=== PATIENT | female | born 1940 | race Caucasian/White ===

== ENCOUNTER → 2016-07-29 | Outpatient (CLI) | payer OTHER ==
[~2016-07-29] VITALS: Ht 165.1 cm; Wt 82.4 kg
[~2016-07-29] MED LIST: ASPIR 8181 MG PO; ATORVASTATIN CA40 MG PO; CENTRUM SILVER1 EAC4; METOPROLOL SUCC50 MG PO; NEURONTIN300 MG PO; PERCOCET 7.5-31 EACH PO; VERAPAMIL ER240 MG PO; ZETIA10 MG PO; ZOLOFT50 MG PO
--- NOTE | ~2016-07-29 | HPC ---
[facility] [address] [place] [address] PAIN MANAGEMENT CONSULTATION Name: MILAGROS FINLEY [id number] Admission: 07/29/16 Attend Phys: Moshe Latham DO Discharge: Date of : 41 Report #: [id number] THIS REPORT FOR: //name// CC: Moshe Rosas DATE OF SERVICE: 07/29/2016 DATE OF SERVICE: 07/29/2015 CHIEF COMPLAINT: Low back pain, bilateral lower extremity pain and paresthesias secondary to spinal stenosis. HISTORY OF PRESENT ILLNESS: As you know, the patient is very pleasant 75-year-old female returning in followup visit reporting pain score of around 7/10. States her pain is chronic in nature, sharp, numbness, tingling in sensation, exacerbated with sitting, walking, standing and improves with medications, repositioning, lying down, heat, cold compresses and epidural injections. She returns today in followup visit with a 90% improvement in overall pain with the epidural injection provided 2 months ago, requesting the next in a series of epidural injections in hopes of building on success of previous intervention to address her 7/10 pain today. ALLERGIES: SULFA. CURRENT MEDICATIONS: Oxycodone, aspirin, metoprolol, multivitamin, sertraline, verapamil, atorvastatin, Zetia. SOCIAL HISTORY: The patient denies tobacco, alcohol or IV or illicit drug use. She is retired. Has been retired for years, unaccompanied today. PHYSICAL EXAMINATION: VITAL SIGNS: Blood pressure 184/61, pulse 65, respiratory rate 20, unlabored. The patient is 100% on room air. Height 5 feet 5 inches tall, weight 181.6 pounds, BMI calculated 30.2. GENERAL: Well-developed, well-nourished, well-hydrated 75-year-old female appearing stated age. She is placing current pain score 7/10. HEENT: Normocephalic, atraumatic. Pupils equal, round, reactive to light. Extraocular muscles are intact. There is noted bilateral blepharitis. Speech is fluent. EXTREMITIES: Show no clubbing, no cyanosis, no edema. MUSCULOSKELETAL: Lower extremity strength appears again equal and symmetrical 5/5. Seated straight leg raising negative. Supine straight leg raising positive, left greater than right. Gait is tandem. Muscle bulk and tone equal and symmetrical in lower extremities. [facility] [address] [place] [address] PAIN MANAGEMENT CONSULTATION Name: TUSHARMILAGROS CHANDRA [facility] [id number] Admission: 07/29/16 Attend Phys: Moshe Latham DO Discharge: Date of : 41 Report #: [id number] ASSESSMENT: 1. Symptomatic lumbar radiculopathy. 2. Spinal stenosis of the lumbar spine. 3. Displacement of lumbar intervertebral disk with radiculopathy. 4. Lumbosacral spondylosis with radiculopathy. 5. Degeneration of lumbar spine. 6. Chronic intractable pain. PLAN: 1. The patient returns today in followup visit requesting next in the series of epidural injections under fluoroscopic guidance. The patient has done very well with previous epidural injection. She is hopeful to see similar improvement with today's procedure, as you are aware, the patient received 90% improvement in overall pain lasting for nearly 2 months with the previous injection. She has been consented to undergo the procedure. Advised of risks and benefits, states she understood and wished to proceed. 2. The patient was provided a refill prescription on Percocet 7.5/325 one tab every 6 hours p.r.n. for pain, #120, releases of today, 4 weeks from today, 8 weeks from today. This medication is working well. She is denying any side effects with its use and wishes to continue the therapy. 3. The patient to return to our clinic on an as needed basis for next in the series of epidural injections. Otherwise, we will see her back in followup visit in 3 months for medication management. PROCEDURE NOTE DESCRIPTION OF PROCEDURE: Lumbar epidural steroid injection under fluoroscopic guidance. After obtaining written consent, the patient was taken back to fluoroscopy suite, placed in prone position with pillow under abdomen to decrease lumbar lordosis. Skin overlying the lumbosacral area was then prepped and draped in aseptic fashion. Lumbar intervertebral spaces were identified by AP fluoroscopy. Skin and subcutaneous tissue overlying the target site of injection was anesthetized with 3 mL of 1% lidocaine. A 20-gauge 3-1/2 inch Tuohy needle was advanced under fluoroscopic guidance towards the epidural space using a paramedian approach. Epidural space was identified using loss of resistance to air technique. After negative aspiration for heme or cerebrospinal fluid, 1 mL of Omnipaque was injected. Lumbar epidurogram was confirmed using both AP and lateral fluoroscopy. After negative aspiration for heme or cerebrospinal fluid, 5 mL of a solution containing 2 mL 40 mg per mL, 80 mg total triamcinolone and 3 mL lidocaine 1% was injected slowly. Needle retracted approximately half way and needle tract flushed 3 mL 1% lidocaine. Needle then removed. Sterile bandage placed over the injection [address] [address] PAIN MANAGEMENT CONSULTATION Name: MILAGROS FINLEY Room #: REG CLI Nancy#: [id number] Admission: 07/29/16 Attend Phys: Moshe Latham DO Discharge: Date of : 41 Report #: [id number] site. No new motor deficits present in the lower extremity following the procedure. The patient tolerated procedure well, carefully escorted to recovery room in stable condition. No apparent complications. After meeting discharge criteria, the patient discharged home. <ELECTRONICALLY SIGNED> By: Moshe Latham DO 07/29/16 1316 [id number] Moshe Latham DO /nt
[2016-07-29 09:44] VITALS: BP 184/61
== END | disposition home or self-care (01) ==
LOC: PAIN 05:43
DX: M51.16 Intervertebral disc disorders with radiculopathy, lumbar region (principal); M48.06 Spinal stenosis, lumbar region; M47.27 Other spondylosis with radiculopathy, lumbosacral region; G89.29 Other chronic pain

== ENCOUNTER → 2016-11-11 | Outpatient (CLI) | payer OTHER ==
[~2016-11-11] VITALS: Ht 165.1 cm; Wt 81.6 kg
--- NOTE | ~2016-11-11 | HPC ---
[facility] [address] [place] [address] PAIN MANAGEMENT CONSULTATION Name: MILAGROS FINLEY Room #: REG [facility].#: [id number] Admission: 11/11/16 Attend Phys: Moshe Latham DO Discharge: Date of : 41 Report #: [id number] THIS REPORT FOR: //name// CC: Moshe Rosas MD DATE OF SERVICE: 11/11/2016 DATE OF SERVICE: 11/11/2016 CHIEF COMPLAINT: Low back pain, bilateral lower extremity pain and paresthesias. HISTORY OF PRESENT ILLNESS: As you know, patient is a very pleasant 76-year-old female, who returns today in followup visit with continued low back pain, bilateral lower extremity pain for which she places pain score at 8/10. She indicates pain is sharp and tingling in sensation, exacerbated with sitting, walking, standing and bending, improves with repositioning, lying down, heat, cold compresses, medications and previous epidural injections. The most recent epidural injection reportedly provided 50-60% improvement in overall pain lasting for nearly 2 months. She returns today in followup visit requesting refills on her Percocet therapy for which she takes 4 tabs of Percocet 7.5/325 today and to undergo the next in a series of epidural injections in hopes of improving pain. She denies new injury, new trauma that may have led the symptoms and their continuation of discomfort. ALLERGIES: No known drug allergies. CURRENT MEDICATIONS: Percocet, metoprolol, multivitamin, verapamil, sertraline, atorvastatin and Zetia. SOCIAL HISTORY: The patient denies tobacco, alcohol, IV or illicit drug use. She is retired and retired years ago, unaccompanied today. IMAGING: No new imaging available. PHYSICAL EXAMINATION: VITAL SIGNS: Blood pressure 140/59, pulse 66, respiratory rate 20, unlabored. The patient is 97% on room air, height 5 feet 5 inches tall, weight 180 pounds, BMI calculated 30. GENERAL: Well-developed, well-nourished, well-hydrated, 76-year-old female appearing stated age, placing current pain score 8/10. HEENT: Normocephalic, atraumatic. Pupils equal, round, reactive to light. Extraocular muscles are intact. EXTREMITIES: Show no clubbing, no cyanosis, no edema. [address] [address] PAIN MANAGEMENT CONSULTATION Name: MILAGROS FINLEY Room #: REG CL Nancy#: [id number] Admission: 11/11/16 Attend Phys: Moshe Latham DO Discharge: Date of : 41 Report #: [id number] MUSCULOSKELETAL: Lower extremity strength remains equal and symmetrical 5/5. Seated straight leg raising negative. Supine straight leg raising positive. Fabere's test negative. Gait mildly antalgic, stance forward flexed of the lumbar spine with loss of lordotic curvature. ASSESSMENT: 1. Symptomatic lumbar radiculopathy. 2. Progressively worsening spinal stenosis of the lumbar spine. 3. Displacement of lumbar intervertebral disk with radiculopathy. 4. Lumbosacral spondylosis with radiculopathy. 5. Degeneration of lumbar spine. 6. Chronic intractable pain. PLAN: 1. The patient has returned today in followup visit requesting to undergo epidural injection under fluoroscopic guidance. She has done very well with previous epidural injections in the past. Fact the most recent provided 50-60% improvement in overall pain lasting for nearly 2 months. The patient and I discussed the risks and benefits of repeating epidural injection, states she understood and wished to proceed. 2. The patient was provided a refill prescription on Percocet 7.5/325 one tab p.o. q. 6 hours p.r.n. for pain, given the patient #120. The patient was advised to take the medication as directed, not to rely on the medication prophylactically. She has been very appropriate with her medications. We will continue to monitor her safety with use of this therapy. 3. We will see the patient back in followup visit on an as needed basis for possible repeat epidural injection. Otherwise, we will see her back in 3 months for medication management. PROCEDURE NOTE DESCRIPTION OF PROCEDURE: Lumbar epidural steroid injection under fluoroscopic guidance. After obtaining written consent, the patient was taken back to fluoroscopy suite, placed in prone position with pillow under abdomen to decrease lumbar lordosis. Skin overlying lumbosacral area prepped and draped in aseptic fashion. Lumbar intervertebral spaces were identified by AP fluoroscopy. Skin and subcutaneous tissue overlying target site of injection was anesthetized with 3 mL of 1% lidocaine. A 20-gauge 3-1/2 inch Tuohy needle advanced under fluoroscopic guidance towards the epidural space using a paramedian approach. Epidural space identified using loss of resistance to air technique. After negative aspiration for heme or cerebrospinal fluid, 1 mL of Omnipaque was injected. A lumbar epidurogram was confirmed using both AP and lateral fluoroscopy. After negative aspiration for [address] [address] PAIN MANAGEMENT CONSULTATION Name: MILAGROS FINLEY Room #: REG JOE Cruz#: [id number] Admission: 11/11/16 Attend Phys: Moshe Latham DO Discharge: Date of : 41 Report #: [id number] heme or cerebrospinal fluid, 5 mL of a solution containing 2 mL 40 mg per mL, 80 mg total triamcinolone, 3 mL lidocaine 1% injected slowly. Needle retracted long term, needle tract flushed 3 mL 1% lidocaine. Needle then removed. Sterile bandage placed over injection site. No new motor deficits present in the lower extremities following the procedure. The patient tolerated procedure well, carefully escorted to the recovery in stable condition. No apparent complications. After meeting discharge criteria, the patient discharged home. By: [id number] [id number] Moshe Latham DO /nt
[2016-11-11 09:10] VITALS: BP 140/59
== END ==
LOC: PAIN 06:52
DX: M47.27 Other spondylosis with radiculopathy, lumbosacral region (principal); M48.06 Spinal stenosis, lumbar region; M51.16 Intervertebral disc disorders with radiculopathy, lumbar region; I10 Essential (primary) hypertension

== ENCOUNTER → 2017-03-10 | Outpatient (CLI) | payer OTHER ==
[~2017-03-10] VITALS: Ht 165.1 cm; Wt 78.1 kg
--- NOTE | ~2017-03-10 | HPC ---
[facility] [address] [place] [address] PAIN MANAGEMENT CONSULTATION Name: MILAGROS FINLEY Room #: REG [facility].#: [id number] Admission: 03/10/17 Attend Phys: Moshe Latham DO Discharge: Date of : 41 Report #: [id number] THIS REPORT FOR: //name// CC: Moshe Rosas MD DATE OF SERVICE: 03/10/2017 REFERRING PHYSICIAN: Brenda Rosas MD. CHIEF COMPLAINT: Low back pain, bilateral lower extremity pain and paresthesias. HISTORY OF PRESENT ILLNESS: As you know, the patient is a very pleasant 76-year-old female who returns today in followup visit with recurrent low back pain, lower extremity pain with paresthesias. The patient is now placing pain score at 7-8/10. The patient reports 75% improvement in overall pain with previous epidural injections. Unfortunately, she has had a slow and progressive return of symptoms. She describes pain as burning, aching and intermittent in descriptions. She describes the pain is exacerbated with standing and walking and improves with medications and lying down. She returns today in followup visit for next in the series of epidural injections under fluoroscopic guidance and also to receive refills of her medications. She is denying side effects to the medications, such as sleepiness, disorientation and confusion. She denies injury or trauma or changes in her medical history since our last visit. ALLERGIES: No known drug allergies. CURRENT MEDICATIONS: Percocet, metoprolol, multivitamin, verapamil, sertraline, atorvastatin and Zetia. SOCIAL HISTORY: The patient denies tobacco, alcohol, IV or illicit drug use. She is retired. retired years ago. She is unaccompanied at today's visit. IMAGING: No new imaging available. PHYSICAL EXAMINATION: VITAL SIGNS: Blood pressure 139/66, pulse 63 and respiratory rate 18, unlabored. The patient is 97% on room air. Height 5 feet 5 inches tall, weight 172.2 pounds and BMI calculated at 28.7. GENERAL: Well-developed, well-nourished and well-hydrated 76-year-old female appearing her stated age, placing current pain score 7-8/10. HEENT: Normocephalic, atraumatic. Pupils equal, round and reactive to light. Extraocular muscles are intact. Sclerae nonicteric, without injection. EXTREMITIES: Show no clubbing, no cyanosis and no edema. [facility] [address] [place] [address] PAIN MANAGEMENT CONSULTATION Name: MILAGROS FINLEY Room #: REG [facility]#: [id number] Admission: 03/10/17 Attend Phys: Moshe Latham DO Discharge: Date of : 41 Report #: [id number] MUSCULOSKELETAL: Lower extremity strength appears equal and symmetrical 5/5. Seated straight leg raising negative. Supine straight leg raising remains positive. Helio test negative. Modified Gaenslen's positive for axial low back pain. Ankle clonus negative. Babinski is negative. ASSESSMENT: 1. Symptomatic lumbar radiculopathy. 2. Spinal stenosis, lumbar spine. 3. Displacement of lumbar intervertebral disk with radiculopathy. 4. Lumbosacral spondylosis with radiculopathy. 5. Lumbar degeneration. 6. Chronic intractable pain. PLAN: 1. The patient returns today in followup visit to undergo next in the series of epidural injections. She reports a 75% improvement in overall pain with previous injection lasting until just recently, where she had a slow and progressive return of symptoms without inciting injury or trauma. She has requested this repeat epidural injection in hopes of building on success of previous intervention, reducing her pain to a tolerable level. She has been advised risks and benefits of procedure, states she understood and wished to proceed. 2. The patient was provided a refill prescription on her oxycodone 7.5/325 one tab every 6 hours p.r.n. for pain. I have given the patient #120, releases of today, 4 weeks from today and 8 weeks from today. The patient denies side effects of somnolence, decreased mental acuity, disorientation, confusion or constipation with the use of this medication. She does find it beneficial. 3. We will see the patient back in followup visit in 3 months for medication therapy, earlier if she wishes to undergo next in the series of epidural injections. PROCEDURE NOTE DESCRIPTION OF PROCEDURE: L5-S1 interlaminar epidural steroid injection under fluoroscopic guidance. After obtaining written consent, the patient was taken back to fluoroscopy suite, placed in prone position with pillow under abdomen to decrease lumbar lordosis. Skin overlying lumbosacral area prepped and draped in aseptic fashion. Lumbar intervertebral spaces were identified by AP fluoroscopy. Skin and subcutaneous tissue overlying target site of injection was anesthetized with 3 mL of 1% lidocaine. A 20-gauge 3.5-inch Tuohy needle advanced under fluoroscopic guidance towards the epidural space using a midline approach. Epidural space identified using [address] [address] PAIN MANAGEMENT CONSULTATION Name: MILAGROS FINLEY Room #: REG [facility]#: [id number] Admission: 03/10/17 Attend Phys: Moshe Latham DO Discharge: Date of : 41 Report #: [id number] loss of resistance to air technique. After negative aspiration for heme or cerebrospinal fluid, 1 mL of Omnipaque was injected. Lumbar epidurogram was confirmed using both AP and lateral fluoroscopy. After negative aspiration for heme or cerebrospinal fluid, 5 mL of a solution containing 2 mL 40 mg per mL 80 mg total triamcinolone and 3 mL lidocaine 1% injected slowly. Needle retracted jail, needle tract flushed 3 mL 1% lidocaine. Needle then removed. Sterile bandage placed over injection site. No new motor deficits present in the lower extremity following the procedure. The patient tolerated procedure well, carefully escorted to the recovery room in stable condition. No apparent complications. After meeting discharge criteria, the patient discharged home. <ELECTRONICALLY SIGNED> By: Moshe Latham DO 03/16/17 0804 [id number] Moshe Latham DO /nt
[2017-03-10 09:36] VITALS: BP 139/66
== END ==
LOC: PAIN 07:14
DX: M51.16 Intervertebral disc disorders with radiculopathy, lumbar region (principal); M47.27 Other spondylosis with radiculopathy, lumbosacral region; G89.29 Other chronic pain; Z79.899 Other long term (current) drug therapy; Z79.82 Long term (current) use of aspirin

== ENCOUNTER → 2017-09-15 | Outpatient (CLI) | payer OTHER ==
[~2017-09-15] VITALS: Ht 165.1 cm; Wt 84.9 kg
--- NOTE | ~2017-09-15 | HPC ---
[facility] [address] [place] [address] PAIN MANAGEMENT CONSULTATION Name: MILAGROS FINLEY Room #: REG [facility]..#: [id number] Admission: 09/15/17 Attend Phys: Moshe Latham DO Discharge: Date of : 42 Report #: [id number] THIS REPORT FOR: //name// CC: Moshe Rosas MD DATE OF SERVICE: 09/15/2017 REFERRING PHYSICIAN: Brenda Rosas MD CHIEF COMPLAINT: Low back pain, bilateral lower extremity pain and paresthesias. HISTORY OF PRESENT ILLNESS: As you know, the patient is a very pleasant 77-year-old female who returns today in followup visit with low back pain, bilateral lower extremity pain with paresthesias. The patient is placing pain score today 6-7/10, states pain is chronic, burning, intermittent in sensation, exacerbated with standing and walking, improves with medications and lying down. She also is voicing some concerns recently of some hallucinations she has had at night. She wishes to discuss this as well. She has denied any specific injury or trauma that may have led to symptom recurrence. She has returned per the request of her PCP to undergo next in the series of epidural injections. ALLERGIES: No known drug allergies. CURRENT MEDICATIONS: Percocet 7.5/325 one tab every 6 hours p.r.n. for pain, aspirin 81 mg per day, metoprolol 50 mg twice a day, multivitamin 1 tab per day, sertraline 50 mg per day, verapamil 240 mg once a day, atorvastatin 40 mg per day. SOCIAL HISTORY: The patient denies tobacco, alcohol, IV or illicit drug use. She is retired, retired years ago, unaccompanied today. IMAGING: No new imaging available. PQRS: The patient has a history of osteoarthritis involving weightbearing joints, no rheumatoid arthritis, pain intensity 6-7/10. Fall risk is none, she has not had a fall in the last 3 months. She is not on blood thinner. She is treated for hypertension. She has been on opioids for longer than 6 weeks and is undergoing opioid contract. She has a low risk assessment tool for opioid abuse. PHYSICAL EXAMINATION: VITAL SIGNS: Blood pressure 159/62, pulse 60, respiratory rate 20 and unlabored, the patient is 96% on room air, height 5 feet 5 inches tall, weight [facility] [address] [place] [address] PAIN MANAGEMENT CONSULTATION Name: MILAGROS FINLEY Room #: REG [facility].#: [id number] Admission: 09/15/17 Attend Phys: Moshe Latham DO Discharge: Date of : 41 Report #: [id number] 187.2 pounds, and BMI calculated 31.2. GENERAL: Well-developed, well-nourished, well-hydrated 77-year-old female, appearing her stated age, placing current pain score 6-7/10. HEENT: Normocephalic, atraumatic. Pupils are equal, round, and reactive to light. Extraocular muscles are intact. Sclerae are nonicteric without injection. NEUROLOGIC: Cranial nerves 2-12 are grossly intact. Speech is fluent. The patient deemed a good historian. LUNGS: Clear. No wheeze, rhonchi or rales. CARDIOVASCULAR: Regular. No appreciable gallop or rub. ABDOMEN: Soft, nontender, nondistended. EXTREMITIES: Show no clubbing, no cyanosis, and no edema. MUSCULOSKELETAL: Seated straight leg raising negative. Supine straight leg raising positive. Helio's test negative. Modified Gaenslen's positive for axial low back pain. Muscle bulk and tone equal and symmetrical in lower extremities. ASSESSMENT: 1. Symptomatic lumbar radiculopathy. 2. Spinal stenosis of the lumbar spine. 3. Displacement of lumbar intervertebral disk with radiculopathy. 4. Lumbosacral spondylosis with radiculopathy. 5. Lumbar degeneration. 6. Chronic intractable pain. PLAN: 1. The patient returns today in followup visit requesting to undergo next in the series of epidural injections. She has done very well with previous epidural injections, hopeful to see similar improvement today. She has been advised the risks and benefits of procedure, states understood and wished to proceed. 2. The patient does offer information today that she has been having some hallucinations at night. She has had no changes in her normal daily activity and no changes in medication therapy. She is denying any new sleep aids of any type and has been having normal sleep patterns. It does appear that the patient may be suffering from side effects of medications, specifically opioids. It has come to our attention that the patient has been taking the opioids on a consistent basis every 6 hours even though her pain has been well controlled with the epidural injection. I have discussed this with the patient today, these medications were to be taken on an as needed basis, not to be taken prophylactically and this has been advised the patient each and every time we have provided this medication. I do agree with having the patient discontinue the use of these medications as much as possible. I recommend that she only take the medication when her pain level is greater than 7/10, it should not be taken in a prophylactic manner as this will lead to side effects as reported. I have had a very long discussion with the patient today and I do appreciate [facility] [address] [address] PAIN MANAGEMENT CONSULTATION Name: TUSHARMILAGROS CHANDRA Room #: REG [facility].#: [id number] Admission: 09/15/17 Attend Phys: Moshe Latham DO Discharge: Date of : 41 Report #: [id number] Ralph also having the same conversation with the patient over the past couple of days. No changes in medical therapy were offered except to adjust her use of medications to p.r.n. only. PROCEDURE: Lumbar epidural steroid injection under fluoroscopic guidance. DESCRIPTION OF PROCEDURE: After obtaining written consent, the patient was taken back to fluoroscopy suite, placed in prone position with pillow under abdomen to decrease lumbar lordosis. Skin overlying lumbosacral area then prepped and draped in aseptic fashion. Lumbar intervertebral spaces identified by AP fluoroscopy. Skin and subcutaneous tissue overlying target site of injection was anesthetized with 3 mL of 1% lidocaine. A 20-gauge 3-1/2 inch Tuohy needle advanced under fluoroscopic guidance towards the epidural space using a paramedian approach. Epidural space identified using loss of resistance to air technique. After negative aspiration for heme or cerebrospinal fluid, 1 mL of Omnipaque was injected. Lumbar epidurogram was confirmed using both AP and lateral fluoroscopy. After negative aspiration for heme or cerebrospinal fluid, 5 mL of a solution containing 2 mL 40 mg per mL, 80 mg total triamcinolone, 3 mL of lidocaine 1% injected slowly. Needle retracted jail, flushed with 1 mL of 1% lidocaine and removed. Sterile bandage placed over injection site. No new motor deficits present in lower extremity following procedure. The patient tolerated procedure well, carefully escorted to recovery room in stable condition. No apparent complication. After meeting discharge criteria, the patient discharged home. <ELECTRONICALLY SIGNED> By: Moshe Latham DO 09/22/17 0916 1327 1814 Moshe Latham DO /nt
--- NOTE | ~2017-09-15 | HPC ---
[facility] [address] [address] PAIN MANAGEMENT CONSULTATION Name: MILAGROS FINLEY Room #: REG [facility].#: [id number] Admission: 09/15/17 Attend Phys: Moshe Latham DO Discharge: Date of : 41 Report #: [id number] THIS REPORT FOR: //name// CC: Moshe Rosas MD DATE OF SERVICE: 09/15/2017 PROCEDURE: Lumbar epidural steroid injection under fluoroscopic guidance. DESCRIPTION OF PROCEDURE: After obtaining written consent, the patient was taken back to fluoroscopy suite, placed in prone position with pillow under abdomen to decrease lumbar lordosis. Skin overlying lumbosacral area then prepped and draped in aseptic fashion. Lumbar intervertebral spaces identified by AP fluoroscopy. Skin and subcutaneous tissue overlying target site of injection was anesthetized with 3 mL of 1% lidocaine. A 20-gauge 3-1/2 inch Tuohy needle advanced under fluoroscopic guidance towards the epidural space using a paramedian approach. Epidural space identified using loss of resistance to air technique. After negative aspiration for heme or cerebrospinal fluid, 1 mL of Omnipaque was injected. Lumbar epidurogram was confirmed using both AP and lateral fluoroscopy. After negative aspiration for heme or cerebrospinal fluid, 5 mL of a solution containing 2 mL 40 mg per mL, 80 mg total triamcinolone, 3 mL of lidocaine 1% injected slowly. Needle retracted prison, flushed with 1 mL of 1% lidocaine and removed. Sterile bandage placed over injection site. No new motor deficits present in lower extremity following procedure. The patient tolerated procedure well, carefully escorted to recovery room in stable condition. No apparent complication. After meeting discharge criteria, the patient discharged home. <ELECTRONICALLY SIGNED> By: Moshe Latham DO 09/16/17 0717 1328 [id number] Moshe Latham DO /nt
[2017-09-15 08:45] VITALS: BP 159/62
== END ==
LOC: PAIN 07:00
DX: M48.061 Spinal stenosis, lumbar region without neurogenic claudication (principal); M51.16 Intervertebral disc disorders with radiculopathy, lumbar region; M47.27 Other spondylosis with radiculopathy, lumbosacral region; M51.36 Other intervertebral disc degeneration, lumbar region; I10 Essential (primary) hypertension; G89.29 Other chronic pain; Z88.2 Allergy status to sulfonamides; Z79.82 Long term (current) use of aspirin; Z79.899 Other long term (current) drug therapy

== ENCOUNTER → 2017-12-29 | Outpatient (CLI) | payer OTHER ==
[~2017-12-29] VITALS: Ht 165.1 cm; Wt 86.5 kg
--- NOTE | ~2017-12-29 | HPC ---
[facility] [address] [place] [address] PAIN MANAGEMENT CONSULTATION Name: MILAGROS FINLEY Room #: REG [facility].#: [id number] Admission: 12/29/17 Attend Phys: Moshe Latham DO Discharge: Date of : 41 Report #: [id number] THIS REPORT FOR: //name// CC: Moshe Rosas MD DATE OF SERVICE: 12/29/2017 REFERRING PHYSICIAN: Brenda Rosas MD CHIEF COMPLAINT: Low back pain and left lower extremity pain with paresthesias. HISTORY OF PRESENT ILLNESS: As you know, the patient is a very pleasant 77-year-old female, who returns today in followup visit to undergo next in the series of epidural injections. She indicates pain began to return about 2 weeks ago. She states her pain is burning and numbness in sensation is intermittent, exacerbations up to 6/10. She states the pain is exacerbated with standing, walking, improves with medications, lying down and epidural injections. She reports a 75% improvement in overall pain with previous epidural injection lasting for greater than 2 months. She returns today requesting next in the series of epidural injections to build on success of previous intervention. ALLERGIES: SULFA. CURRENT MEDICATIONS: Percocet 7.5/325 one tab every 6 hours p.r.n. for pain, aspirin 81 mg per day, metoprolol 50 mg twice a day, multivitamin 1 tab per day, sertraline 50 mg per day, verapamil 240 mg once a day, atorvastatin 40 mg per day. SOCIAL HISTORY: The patient denies tobacco, alcohol, IV or illicit drug use. She is retired, retired years ago, unaccompanied today. IMAGING: No new imaging available. PQRS: The patient has osteoarthritis. No rheumatoid arthritis. Pain intensity today 4/10. The patient is not a fall risk. She has not had a fall in the last 3 months. She is not on blood thinners. She is treated for hypertension successfully. She is on opioids and has been for greater than 6 weeks. She is under opioid contract. She has a low assessment for opioid abuse. Functional assessment indicates pain interference of 44/70, moderate to severe. PHYSICAL EXAMINATION: VITAL SIGNS: Blood pressure 148/72, pulse 55, respiratory rate 20 and unlabored. The patient is 96% on room air. Height 5 feet 5 inches tall, weight 190 pounds, BMI [place] 31.7[place] [address] PAIN MANAGEMENT CONSULTATION Name: MILAGROS FINLEY Room #: REG [facility]#: [id number] Admission: 12/29/17 Attend Phys: Moshe Latham DO Discharge: Date of : 41 Report #: [id number] GENERAL: Well-developed, well-nourished, well-hydrated 77-year-old female appearing stated age, placing current pain score at 4/10. HEENT: Normocephalic, atraumatic. Pupils equal, round, reactive to light. EXTREMITIES: Show no clubbing, no cyanosis, no edema. MUSCULOSKELETAL: Lower extremity strength is symmetrical 5/5, muscle bulk and tone equal and symmetrical when comparing left lower extremity to right. Gait appears mildly antalgic. Seated straight leg raising negative. Supine straight leg raising positive. ASSESSMENT: 1. Symptomatic lumbar radiculopathy. 2. Spinal stenosis of lumbar spine. 3. Displacement of lumbar intervertebral disk with radiculopathy. 4. Lumbosacral spondylosis with radiculopathy. 5. Lumbar degeneration. 6. Chronic intractable pain. PLAN: 1. The patient returns today in followup visit requesting to undergo epidural injection under fluoroscopic guidance. The patient reported 75% improvement in overall pain lasting for greater than 2 months with previous injection. She returns without inciting injury or trauma requesting next in the series to build on success of previous intervention. The patient was advised risks and benefits of the procedure, states she understood and wished to proceed. 2. No medication changes made at today's visit. The patient will continue current medical therapy as previously prescribed. 3. We will see the patient back in followup visit on an as needed basis for the next in a series of epidural injections and discuss medication management changes if necessary. PROCEDURE NOTE DESCRIPTION OF PROCEDURE: L5-S1 left paramedian epidural steroid injection under fluoroscopic guidance. After obtaining written consent, the patient was taken back to fluoroscopy suite, placed in prone position with pillow under abdomen to decrease lumbar lordosis. Skin overlying lumbosacral area then prepped and draped in aseptic fashion. Lumbar intervertebral spaces identified by AP fluoroscopy. Skin and subcutaneous tissue overlying target site of injection was anesthetized with 3 mL of 1% lidocaine. A 20-gauge 3-1/2 inch Tuohy needle advanced under fluoroscopic guidance towards the epidural space using a left paramedian approach. Epidural space identified using loss of resistance to air technique. After negative aspiration for heme or cerebrospinal fluid, 1 mL of Omnipaque injected. Lumbar epidurogram [facility] [address] [place] [address] PAIN MANAGEMENT CONSULTATION Name: MILAGROS FINLEY Room #: REG [facility]#: [id number] Admission: 12/29/17 Attend Phys: Moshe Latham DO Discharge: Date of : 41 Report #: [id number] confirmed using both AP and lateral fluoroscopy. After negative aspiration for heme or cerebrospinal fluid, 5 mL of a solution containing 2 mL 40 mg per mL, 80 mg total triamcinolone, 3 mL lidocaine 1% injected slowly. Needle retracted fci, flushed with 1 mL of 1% lidocaine and removed. Sterile bandage placed over injection site. No new motor deficits present in the lower extremity following procedure. The patient tolerated the procedure well, carefully escorted to recovery room in stable condition. No apparent complications. After meeting discharge criteria, the patient discharged home. <ELECTRONICALLY SIGNED> By: Moshe Latham DO 12/30/17 0804 0914 1250 Moshe Latham DO /nt
[2017-12-29 08:31] VITALS: BP 168/72
== END | disposition home or self-care (01) ==
LOC: PAIN 06:34
DX: M51.16 Intervertebral disc disorders with radiculopathy, lumbar region (principal); M48.061 Spinal stenosis, lumbar region without neurogenic claudication; M47.27 Other spondylosis with radiculopathy, lumbosacral region; G89.29 Other chronic pain; I10 Essential (primary) hypertension; M19.90 Unspecified osteoarthritis, unspecified site; Z88.2 Allergy status to sulfonamides; Z79.899 Other long term (current) drug therapy; Z79.82 Long term (current) use of aspirin; Z79.891 Long term (current) use of opiate analgesic; Z98.890 Other specified postprocedural states

== ENCOUNTER → 2018-05-04 | Outpatient (CLI) | payer OTHER ==
[~2018-05-04] VITALS: Ht 165.1 cm; Wt 90.1 kg
--- NOTE | ~2018-05-04 | HPC ---
[facility] [place] [address] [place] [address] PAIN MANAGEMENT CONSULTATION Name: MILAGROS FINLEY [facility] [id number] Admission: 05/04/18 Attend Phys: Moshe Latham DO Discharge: Date of : 41 Report #: [id number] THIS REPORT FOR: //name// CC: Moshe Rosas MD DATE OF SERVICE: 05/04/2018 REFERRING PHYSICIAN: Brenda Rosas M.D. CHIEF COMPLAINT: Low back pain and lower extremity pain with paresthesias, left greater than right. HISTORY OF PRESENT ILLNESS: As you know, the patient is a very pleasant 77-year-old female who returns today in followup visit to undergo next in the series of epidural injections under fluoroscopic guidance. The patient is placing current pain score at 4/10. She states pain is exacerbated with standing, going up and downstairs and lying down and improves with medication and repositioning. She reports greater than 50%-60% improvement overall pain with previous epidural injection, returning today requesting next in the series in hopes of improving pain. ALLERGIES: SULFA. CURRENT MEDICATIONS: Percocet 7.5/325 one tab every 6 hours p.r.n. for pain, aspirin 81 mg per day, metoprolol 50 mg twice a day, multivitamin 1 tab per day, sertraline 50 mg once a day, verapamil 240 mg once a day and atorvastatin 40 mg per day. SOCIAL HISTORY: The patient denies tobacco, alcohol or IV or illicit drug use. Retired, retired years ago, unaccompanied today. IMAGING DATA: No new imaging available. PQRS: The patient has osteoarthritis of the low back and bilateral hips. No rheumatoid arthritis. She is placing her pain intensity today at a level of 4/10. She is not a fall risk, has not had a fall in last 3 months. She is not on blood thinners. She is treated for hypertension. She has been on opioids for longer than 6 weeks and is under contract to receive his medications through [facility]. She is at a low risk for opioid addiction. Functional assessment pain impact tool 44/70 indicating moderate interference of daily activities secondary to pain. PHYSICAL EXAMINATION: VITAL SIGNS: Blood pressure 178/78, pulse 59 and respiratory rate 16 and [facility] [address] [place] [address] PAIN MANAGEMENT CONSULTATION Name: MILAGROS FINLEY Room #: [facility].#: [id number] Admission: 05/04/18 Attend Phys: Moshe Latham DO Discharge: Date of : 41 Report #: [id number] unlabored. The patient is 100% on room air. Height 5 feet 5 inches tall, weight 198.6 pounds and BMI calculated 33. GENERAL: Well-developed, well-nourished, well-hydrated 77-year-old female appearing her stated age, placing current pain score 4/10. HEENT: Normocephalic and atraumatic. Pupils equal, round and reactive to light. EXTREMITIES: Show no clubbing, no cyanosis and no edema. MUSCULOSKELETAL: Lower extremity strength is symmetrical 5/5. Muscle bulk and tone appears equal and symmetrical in comparing lower extremities. Gait appears and mildly antalgic favoring left lower extremity over right. Seated straight leg raising negative. Supine straight leg raising positive on the left. ASSESSMENT: 1. Symptomatic lumbar radiculopathy. 2. Spinal stenosis of the lumbar spine. 3. Displacement of the lumbar intervertebral disk with radiculopathy. 4. Lumbosacral spondylosis with radiculopathy. 5. Lumbar degeneration. 6. Chronic intractable pain. PLAN: 1. The patient returns today in followup visit requesting to undergo next in the series of epidural injections. The patient has noted good benefit with previous epidural injection 50%-60% improvement in overall pain. She returns today requesting next in the series in hopes of improving pain further. She has been advised risks and benefits, states understood and wished to proceed. 2. No medication changes made at today's visit. The patient will continue current medical therapy as previously prescribed. 3. We will see the patient back in followup visit on an as needed basis. PROCEDURE NOTE DESCRIPTION OF PROCEDURE: L5-S1 left paramedian epidural steroid injection under fluoroscopic guidance. After obtaining written consent, the patient was taken back to fluoroscopy suite, placed in prone position with pillow under abdomen to decrease lumbar lordosis. Skin overlying lumbosacral area then prepped and draped in aseptic fashion. Lumbar intervertebral spaces were identified by AP fluoroscopy. Skin and subcutaneous tissue overlying target site of injection anesthetized with 3 mL of 1% lidocaine. A 20-gauge 3-1/2 inch Tuohy needle advanced under fluoroscopic guidance towards the epidural space using a left paramedian approach. Epidural space identified using loss of resistance to air technique. After negative aspiration for heme or cerebrospinal fluid, 1 mL of Omnipaque injected. Lumbar epidurogram [facility] [address] [place] [address] PAIN MANAGEMENT CONSULTATION Name: MILAGROS FINLEY [facility] [id number] Admission: 05/04/18 Attend Phys: Moshe Latham DO Discharge: Date of : 41 Report #: [id number] confirmed using both AP and lateral fluoroscopy. After negative aspiration for heme or cerebrospinal fluid, 5 mL of a solution containing 2 mL 40 mg per mL, 80 mg total triamcinolone, 3 mL lidocaine 1% injected slowly. Needle retracted custodial, flushed with 1 mL of 1% lidocaine and removed. Sterile bandage placed over injection site. No new motor deficits present in the lower extremities following procedure. The patient tolerated procedure well, carefully escorted to Recovery Room in stable condition. No apparent complications. After meeting discharge criteria, the patient discharged home. <ELECTRONICALLY SIGNED> By: Moshe Latham DO 05/05/18 0821 0950 1304 Moshe Latham DO /nt
[2018-05-04 09:15] VITALS: BP 178/78
== END | disposition home or self-care (01) ==
LOC: PAIN 06:54
DX: M51.16 Intervertebral disc disorders with radiculopathy, lumbar region (principal); M48.061 Spinal stenosis, lumbar region without neurogenic claudication; M47.27 Other spondylosis with radiculopathy, lumbosacral region; G89.29 Other chronic pain; M16.0 Bilateral primary osteoarthritis of hip; I10 Essential (primary) hypertension; Z88.2 Allergy status to sulfonamides; Z79.899 Other long term (current) drug therapy; Z79.82 Long term (current) use of aspirin; Z79.891 Long term (current) use of opiate analgesic